=== PATIENT | male | born 2005 | race Caucasian/White ===

== ENCOUNTER 2023-09-14 18:10 | Emergency (ER) | payer BC ==
[~2023-09-14] VITALS: Ht 177.8 cm; Wt 72.7 kg
[2023-09-14] MEDS ORDERED: HYDROXYZINE HCL25 M1 PO (18:26)
[2023-09-14] MEDS ORDERED: SEROQUEL50 MG PO (18:26)
[2023-09-14] MEDS ORDERED: DIAZEPAM10 MG PO (18:27)
[2023-09-14] MEDS ORDERED: PRAZOSIN (18:27)
[2023-09-14] MEDS ORDERED: VENLAFAXINE HYD75 MG PO (18:27)
[2023-09-14 18:55] LABS: BASO # 0.04 K/mm3 (0.02-0.10); EOS # 0.08 K/mm3 (0.04-0.40); HEMATOCRIT 49.5 % (36.0-47.0); HEMOGLOBIN 16.9 g/dL (12.5-16.1); LYMPH# 1.72 K/mm3 (1.50-4.00); MEAN CELL VOLUME 93 fl (78-95); MEAN CORPUSCULAR HEMOGLOBIN 32 pg (26-32); MEAN CORPUSCULAR HGB CONC 34 g/dL (33-37); MONO # 0.79 K/mm3 (0.20-0.80); PLATELET COUNT 402 K/mm3 (130-400); RED BLOOD COUNT 5.34 M/mm3 (4.20-5.60); RED CELL DISTRIBUTION WIDTH 11.7 % (11.5-14.5); WHITE BLOOD COUNT 7.6 K/mm3 (4.8-10.8)
[2023-09-14 18:58] LABS: SODIUM 135 mmol/L (136-145)
[2023-09-14 18:59] LABS: CALCIUM 10.4 mg/dL (8.3-10.5)
[2023-09-14 19:01] LABS: TOTAL PROTEIN 7.9 g/dL (6.4-8.3)
[2023-09-14 19:02] LABS: CARBON DIOXIDE 20 mmol/L (22-29); GLUCOSE 138 mg/dL (75-110); TOTAL BILIRUBIN 0.6 mg/dL (0.2-1.2)
[2023-09-14 19:06] LABS: AST-SGOT 15 U/L (5-34)
[2023-09-14 19:08] LABS: ALCOHOL IN-HOUSE < 10 mg/dL (<10)
[2023-09-14 19:09] LABS: ALT/SGPT 9 U/L (0-55)
[2023-09-14] MEDS ORDERED: Nicotine 14 MG DAILY PATCH TD ONE (19:15)
[2023-09-14 19:18] LABS: ACETAMINOPHEN < 1 ug/mL
[2023-09-14 19:47] LABS: TROPONIN-I < 0.030 ng/mL (0.00-0.033)
[2023-09-14 20:56] VITALS: BP 137/84
[2023-09-14 23:46] LABS: URINE APPEARANCE CLEAR (CLEAR); URINE COLOR YELLOW (YELLOW)
[2023-09-14 23:51] LABS: PH-URINE 5.5 (5.0 - 8.0); URINE BILIRUBIN 1+ (NEGATIVE); URINE BLOOD NEGATIVE (NEGATIVE); URINE GLUCOSE NEGATIVE (NEGATIVE); URINE KETONE 1+ (NEGATIVE); URINE LEUKOCYTE ESTERASE NEGATIVE (NEGATIVE); URINE NITRATE NEGATIVE (NEGATIVE); URINE PROTEIN(semi-quant) NEGATIVE (NEGATIVE)
[2023-09-14 23:53] LABS: URINE MUCUS PRESENT (NOT PRESENT); URINE WBC 0-1 /hpf (0-3)
[2023-09-15 06:21] VITALS: BP 106/70
[2023-09-15 07:57] VITALS: BP 114/6
[2023-09-15 09:45] VITALS: BP 114/65
== END 2023-09-15 09:57 | disposition home or self-care (01) ==
LOC: ED 18:10
PROVIDERS: Family Medicine
DX: S41.112A Laceration without foreign body of left upper arm, initial encounter (principal); S41.111A Laceration without foreign body of right upper arm, initial encounter; S21.119A Laceration without foreign body of unspecified front wall of thorax without penetration into thoracic cavity, initial encounter; F32.A Depression, unspecified; X83.8XXA Intentional self-harm by other specified means, initial encounter